=== PATIENT | female | born 1935 | race Two or more races ===

== ENCOUNTER 2021-09-18 06:20 | Day surgery (SDC) | payer OTHER ==
[~2021-09-18 06:20] MED LIST: CARDURA PO; GRALISE600 MG PO; TRAMADOL PO; [UNRECOGNIZED DRUG - OTHER] PO; [UNRECOGNIZED DRUG - OTHER] PO
[2021-09-18] MEDS ORDERED: ASA325 M1 PO (13:02)
[2021-09-18] MEDS ORDERED: PERCOCET 5-3251 EACH PO (13:02)
[2021-09-18] MEDS ORDERED: DUI500 PO (13:02)
== END 2021-09-18 15:10 | disposition home or self-care (01) ==
LOC: CIR.AMB 06:20
PROVIDERS: ATTEND Orthopaedic Surgery
DX: S82.841A Displaced bimalleolar fracture of right lower leg, initial encounter for closed fracture (principal); I10 Essential (primary) hypertension; E11.9 Type 2 diabetes mellitus without complications
CPT/HCPCS: 27814; L8699

== ENCOUNTER 2024-02-07 09:33 | Outpatient (CLI) | payer OTHER ==
[~2024-02-07 09:33] MED LIST changes: +ASA325 M1 PO; +DUI500 PO; +PERCOCET 5-3251 EACH PO
[2024-02-07 11:14] LABS: HEMATOCRIT 33.1 % (36.0-45.00); HEMOGLOBIN 11.1 g/dL (12.0-15.00); MEAN CELL VOLUME 93.2 fL (80.00-100.00); MEAN CORPUSCULAR HEMOGLOBIN 31.2 pg (27.00-32.0); MEAN CORPUSCULAR HGB CONC 33.4 g/dl (32.0-36.0); PLATELET COUNT 254 K/uL (150-450); RED BLOOD COUNT 3.55 M/uL (4.00-6.00)
[2024-02-07 11:50] LABS: ALBUMIN 3.3 gm/dL (3.4-5.0); BILIRUBIN TOTAL 0.31 mg/dL (0.3-1.2); CALCIUM 8.9 mg/dL (8.5-10.1); CHOL HDL RATIO 3.6 (0-5.0); CREATININE SERUM 2.78 mg/dL (0.55-1.02); GFR 16.08; GLOBULINA 3.3 G/DL (2.4-3.5); POTASSIUM 5.02 mEq/L (3.5-5.1); TOTAL PROTEIN 6.6 gm/dL (6.4-8.2)
[2024-02-07 13:04] LABS: INR 1.03; PROTHROMBIN TIME 10.8 SECONDS (9.0-11.5)
[2024-02-07 13:07] LABS: PARTIAL THROMBOPLASTIN TIME 38.7 SECONDS (22.0-34.0)
[2024-02-09] MEDS ORDERED: COZAAR100 MG PO (09:43)
[2024-02-09] MEDS ORDERED: [UNRECOGNIZED DRUG - OTHER] PO (09:44)
[2024-02-09] MEDS ORDERED: ELIQUIS2.5 MG PO (09:44)
[2024-02-09] MEDS ORDERED: TOPROL XL25 M1 PO (09:44)
[2024-02-09] MEDS ORDERED: FARXIGA10 MG PO (09:45)
[2024-02-09] MEDS ORDERED: KEPPRA500 MG PO (09:45)
== END 2024-02-07 09:44 | disposition home or self-care (01) ==
LOC: LAB 09:33
PROVIDERS: ATTEND Orthopaedic Surgery
DX: D68.9 Coagulation defect, unspecified (principal); Z03.818 Encounter for observation for suspected exposure to other biological agents ruled out; Z20.818 Contact with and (suspected) exposure to other bacterial communicable diseases; Z20.828 Contact with and (suspected) exposure to other viral communicable diseases; R05.2 Subacute cough; D64.9 Anemia, unspecified; R10.9 Unspecified abdominal pain; Z79.01 Long term (current) use of anticoagulants; N39.0 Urinary tract infection, site not specified; E78.5 Hyperlipidemia, unspecified

== ENCOUNTER 2024-02-10 08:02 | Day surgery (SDC) | payer OTHER ==
[2024-02-09 10:18] LABS: URINE APPEARANCE Clear; URINE BILIRRUBIN Negative (NEGATIVE); URINE BLOOD Negative; URINE COLOR Yellow; URINE KETONE Negative (NEGATIVE); URINE LEUKOCYTE Negative; URINE NITRATE Negative; URINE UROBILINOGEN 0.2 E.U./dl
[2024-02-09 10:28] LABS: URINE BACTERIA 1675.7 uL (0.0-1933); URINE EPITHELIAL CELLS 49.9 uL (0.0-38.8); URINE RBC 2.2 uL (0.0-20.8); URINE WBC 50.2 uL (0.0-23.2)
[2024-02-09 10:37] LABS: URINE GLUCOSE >=1000 MG/DL (NEGATIVE); URINE PROTEIN 100 (NEGATIVE)
[~2024-02-10] VITALS: Ht 152.4 cm; Wt 63.5 kg
[~2024-02-10 08:02] MED LIST changes: +COZAAR100 MG PO; +ELIQUIS2.5 MG PO; +FARXIGA10 MG PO; +KEPPRA500 MG PO; +TOPROL XL25 M1 PO; +[UNRECOGNIZED DRUG - OTHER] PO
[2024-02-10] MEDS ORDERED: CEFAZOLIN SODIUM 1,000 MG VIAL IV ONE (12:45)
[2024-02-10] MEDS ORDERED: POVIDONE-IODINE 118 ML BOTT TOP ONE (13:32)
[2024-02-10] MEDS ORDERED: TRAM1TAB98 PO (14:18)
[2024-02-10] MEDS ORDERED: DUI500 PO (14:18)
[2024-02-10] MEDS ORDERED: ALEVE220 MG PO (14:18)
== END 2024-02-10 16:10 | disposition home or self-care (01) ==
LOC: CIR.AMB 08:02
PROVIDERS: ATTEND Orthopaedic Surgery
DX: S52.532A Colles' fracture of left radius, initial encounter for closed fracture (principal); S52.613A Displaced fracture of unspecified ulna styloid process, initial encounter for closed fracture; M80.00XA Age-related osteoporosis with current pathological fracture, unspecified site, initial encounter for fracture; I10 Essential (primary) hypertension; E11.9 Type 2 diabetes mellitus without complications
CPT/HCPCS: 25609; 20902; 25101; L8699